=== PATIENT | female | born 1950 | race Caucasian/White ===

== ENCOUNTER 2016-10-23 15:20 | Emergency (ER) | payer BC ==
[~2016-10-23 15:20] MED LIST: Sodium Chloride 0.9% 100 ML BAG ONE
[2016-10-23 16:24] LABS: #Neutrophils 4.3 thou/uL (1.40-6.50); %Basophils 0.4 % (0.0-1.0); %Lymphocytes 27.2 % (21.0-51.0); %Neutrophils 58.4 % (42.0-75.0); Hemoglobin 15.6 g/dL (12.0-16.0); Mean Corpuscular HGB CONC 33.9 g/dL (32.0-36.0); Mean Corpuscular Volume 82.7 fl (81.0-99.0); Mean Platelet Volume 7.2 fL (7.4-10.4); Platelet Count 189 thou/uL (130-400); RBC Distribution Width 12.5 % (11.5-14.5); Red Blood Cell (RBC) Count 5.58 mill/uL (4.20-5.40); White Blood Cell (WBC) Count 7.4 thou/uL (4.8-10.8)
[2016-10-23] MEDS ORDERED: Ketorolac Tromethamine 30 MG/ML VIAL ONE (16:25)
[2016-10-23] MEDS ORDERED: Morphine Sulfate 2 MG/ML SYRINGE ONE ×2 (16:25→18:10)
[2016-10-23] MEDS ORDERED: Ondansetron HCl/PF 4 MG/2 ML Vial ONE (16:26)
[2016-10-23 16:42] LABS: ALT (SGPT) 64 U/L (0-55); Albumin 3.9 g/dL (3.4-4.8); Alkaline Phosphatase 100 U/L (40-150); Anion Gap 19 mmol/L (10-20); BUN (Urea Nitrogen) 10 mg/dL (9.8-20.1); Bilirubin, Total 0.8 mg/dL (0.2-1.2); Calc. Creatinine Clearance 0 mL/min (70-130); Calcium 9.2 mg/dL (7.8-10.44); Carbon Dioxide 23 mmol/L (23-31); Chloride 100 mmol/L (98-107); Estimated GFR-MDRD 83; Globulin 3.7 g/dL (2.4-3.5); Glucose 100 mg/dL (80-115); Potassium 3.4 mmol/L (3.5-5.1); Protein, Total 7.6 g/dL (5.8-8.1); Sodium 139 mmol/L (136-145)
[2016-10-23 16:48] LABS: AST (SGOT) 78 U/L (5-34)
[2016-10-23 17:00] LABS: Blood, Urine Small (Negative); Clarity Slightly Cloudy (Clear); Glucose, Urine (Dipstick) Negative (Negative); Leukocyte Trace (Negative); Nitrite Negative (Negative); Protein, Urine (Dipstick) > or equal to 300 mg/dL (Neg-Trace)
--- NOTE | 2016-10-23 17:15 | RAD ---
TWO VIEW CHEST: 10/23/16 INDICATION: Cough, dyspnea. No prior comparison. FINDINGS: Patchy and linear opacities at the lower lung zones are present bilaterally. There is no effusion or pneumothorax. Cardiac silhouette is mildly enlarged. Mild prominence of central pulmonary vasculatu re. Osseous degenerative change present. IMPRESSION: Patchy bibasilar opacities. This could be on the basis of perihilar edema or pneumonia. A superimpos ed rounded component at the right lower lung zone is nonspecific. An underlying nodule versus a supe rimposed structure are the primary considerations. Followup two view chest to confirm resolution is recommended. Code LN POS: SHEILA
[2016-10-23 17:16] LABS: Bilirubin Negative (Negative)
[2016-10-23 17:17] LABS: Icto Negative (Negative)
[2016-10-23 17:18] LABS: Bacteria/HPF 4+ HPF (None Seen); Squamous Epithelial 0-3 HPF (0-3)
[2016-10-23] MEDS ORDERED: cefTRIAXone\\ROCEPHIN 1 GM VIAL ONE (17:51)
[2016-10-23] MEDS ORDERED: Azithromycin 250 MG TAB ONE (18:10)
[2016-10-23] MEDS ORDERED: Benzonatate 100 MG CAP ONE (18:10)
== END 2016-10-23 18:40 | disposition home or self-care (01) ==
LOC: MADERS 15:20
DX: J18.9 Pneumonia, unspecified organism (principal); N39.0 Urinary tract infection, site not specified; I10 Essential (primary) hypertension; M19.90 Unspecified osteoarthritis, unspecified site; Z79.899 Other long term (current) drug therapy
CPT/HCPCS: 36415; 71020; 80053; 81003; 81015; 85025; 87040; 87077; 87086; 87186; 96374; 96375; 96376; J0696; J1885; J2270; J2405; J7050

== ENCOUNTER 2016-10-30 10:29 | Outpatient (CLI) | payer BC ==
--- NOTE | 2016-10-30 14:17 | RAD ---
PA AND LATERAL VIEWS OF CHEST: Date: 10/30/16 HISTORY: Community-acquired pneumonia. FINDINGS/IMPRESSION: Comparison made with exam of 10/23/16. The heart size is prominent but stable. Patchy density in the right lower lung is again seen. No pneumothorax or large effusions are identif ied. There are chronic changes in the left lower lung. A follow-up exam after treatment is recommend ed in 4 weeks. POS: OFF
== END 2016-10-30 10:30 | disposition home or self-care (01) ==
LOC: MADRAD 10:29
PROVIDERS: ATTEND Family Medicine
DX: J18.9 Pneumonia, unspecified organism (principal)
CPT/HCPCS: 71020

== ENCOUNTER 2016-12-07 11:02 | Outpatient (CLI) | payer BC ==
--- NOTE | 2016-12-07 14:21 | RAD ---
CHEST 2 VIEWS: HISTORY: Right lung nodule. Followup. COMPARISON: 10/30/16 and 10/23/16. FINDINGS: The cardiac silhouette and pulmonary vasculature remain upper limits of normal. Mediastinum is midl ine. The subtle oval nodular density projecting over the right infrahilar level on the frontal view is ag ain demonstrated. It is not significantly changed from the 10/23/09 exam. No new nodules are evident . IMPRESSION: Persistent right lower lobe nodule. Please consider CT chest for better characterization. CODE T POS: SHEILA
== END 2016-12-07 11:03 | disposition home or self-care (01) ==
LOC: MADRAD 11:02
PROVIDERS: ATTEND Family Medicine
DX: R93.8 Abnormal findings on diagnostic imaging of other specified body structures (principal)
CPT/HCPCS: 71020

== ENCOUNTER 2016-12-28 10:01 | Outpatient (CLI) | payer BC ==
--- NOTE | 2016-12-28 14:02 | CT ---
CT OF THE CHEST: Date: 12/28/16 COMPARISON: None. HISTORY: Pulmonary nodule noted on recent chest radiograph. TECHNIQUE: Serial axial CT imaging at 5 mm intervals from the thoracic inlet through the upper abdomen obtained without contrast. Coronal reformatted imaging is obtained. FINDINGS: The lack of contrast limits assessment of the imaged viscera, the vascular structures, and for lymph adenopathy. There is a low density lesion within the left lobe of the thyroid gland measuring 1.8 cm. A follow-u p thyroid ultrasound is advised. No axillary, hilar, or mediastinal lymphadenopathy is seen within the limitations of a noncontrast e nhanced scan. Limited assessment of the abdomen appears grossly unremarkable. Coronary arterial calcifications are seen. There is no pleural, pericardial, or mediastinal fluid noted. There is no pneumothorax seen on either side. There is minimal hazy density within the inferior and lateral aspect of the left lower lobe, as well as the inferior anterior aspect of the lingula, suggesting scar and/or volume loss. There is a focal area of minimal reticulonodular density within the anterolateral aspect of the righ t lower lobe, best seen on axial images 24 and 25, including an irregular nodule which measures up t o 7.0 mm. Medial to this, within the right lower lobe, best seen on image 26, is a 1.5 cm pulmonary nodule. There is no worrisome lytic or blastic bone lesion. IMPRESSION: 1. Dominant 1.5 cm nodule/mass noted in the right lower lobe. Just lateral to this, there is an are a of reticulonodular density with associated nodules measuring up to 7.0 mm. The dominant 1.5 cm nod ule is suspicious for possible malignancy. Its relationship to the adjacent reticulonodular densitie s is uncertain. This may represent infectious pneumonitis in the area of reticulonodular density and an adjacent 1.5 cm pulmonary neoplasm. Clinical correlation is essential. Evaluation for comparison imaging prior to 10/23/16 would be beneficial. Recommend further assessment via PET CT. If there is any concern for current pneumonia in the right lower lobe, the PET CT could be performed following a course of antibiotics. The dominant 1.5 cm nod ule does not have the appearance of an infectious process and has an appearance most concerning for malignancy. 2. There is a low density lesion within the left lobe of the thyroid gland measuring 1.8 cm. A foll ow-up thyroid ultrasound is advised. CODE T. POS: SHEILA
== END 2016-12-28 10:02 | disposition home or self-care (01) ==
LOC: MADCT 10:01
PROVIDERS: ATTEND Family Medicine
DX: R91.1 Solitary pulmonary nodule (principal)
CPT/HCPCS: 71250

== ENCOUNTER 2017-03-19 10:37 | Outpatient (CLI) | payer BC ==
[2017-03-19 10:56] LABS: #Basophils 0.1 thou/uL (0.0-0.2); #Eosinphils 0.2 thou/uL (0.0-0.7); #Lymphocytes 1.7 thou/uL (1.20-3.40); #Monocytes 0.6 thou/uL (0.11-0.59); #Neutrophils 2.5 thou/uL (1.40-6.50); %Basophils 1.4 % (0.0-1.0); %Eosinophils 3.1 % (0.0-10.0); %Lymphocytes 34.1 % (21.0-51.0); %Monocytes 11.3 % (0.0-10.0); %Neutrophils 50.1 % (42.0-75.0); Hemoglobin 13.7 g/dL (12.0-16.0); Mean Corpuscular HGB CONC 33.5 g/dL (32.0-36.0); Mean Corpuscular Hemoglobin 28.4 pg (27.0-31.0); Mean Corpuscular Volume 84.8 fl (81.0-99.0); Mean Platelet Volume 6.6 fL (7.4-10.4); Platelet Count 133 thou/uL (130-400); RBC Distribution Width 12.1 % (11.5-14.5); Red Blood Cell (RBC) Count 4.84 mill/uL (4.20-5.40)
[2017-03-19 13:56] LABS: ALT (SGPT) 40 U/L (8-55); AST (SGOT) 41 U/L (5-34); Albumin 3.8 g/dL (3.4-4.8); Alkaline Phosphatase 75 U/L (40-150); Anion Gap 12 mmol/L (10-20); BUN (Urea Nitrogen) 19 mg/dL (9.8-20.1); Bilirubin, Total 0.5 mg/dL (0.2-1.2); Calc. Creatinine Clearance 0 mL/min (70-130); Calcium 9.4 mg/dL (7.8-10.44); Carbon Dioxide 27 mmol/L (23-31); Chloride 104 mmol/L (98-107); Cholesterol 185 mg/dl (< 200 Desired); Estimated GFR-MDRD 76; Globulin 3.2 g/dL (2.4-3.5); Glucose 73 mg/dL (80-115); HDL Cholesterol 46 mg/dL (>60 Neg Risk); LDL Cholesterol, Calculated 105 mg/dL; Potassium 3.9 mmol/L (3.5-5.1); Sodium 139 mmol/L (136-145); Triglycerides 172 mg/dL (Less than 150)
[2017-03-19 15:04] LABS: Free T4 (Free Thyroxine) 0.79 ng/dL (0.70-1.48)
[2017-03-19 15:37] LABS: Thyroid Stimulating Hormone 4.5841 uIU/mL (0.35-4.94)
== END 2017-03-19 10:38 | disposition home or self-care (01) ==
LOC: MADLABBHPM 10:37
PROVIDERS: ATTEND Family Medicine
DX: E04.1 Nontoxic single thyroid nodule (principal); I10 Essential (primary) hypertension
CPT/HCPCS: 36415; 80053; 80061; 84439; 84443; 85025

== ENCOUNTER 2017-12-09 15:40 | Outpatient (CLI) | payer MEDICARE, OTHER ==
--- NOTE | 2017-12-09 16:52 | CT ---
CHEST CT WITHOUT CONTRAST: 12/09/17 COMPARISON: 12/28/16 HISTORY: Abnormal chest radiograph. Right lower lobe mass noted on previous exam. TECHNIQUE: Noncontrast chest CT is performed in the axial plane. Coronal reformatted images are submitted for in terpretation. FINDINGS: No mediastinal mass, lymphadenopathy or hematoma. Heart size is within normal limits. There are coron markie artery calcifications. No significant pericardial fluid. The visualized upper solid organs are unremarkable. Trachea and central bronchi are patent. Linear op acities in the lingula and left lower lobe are similar to the previous examination and represents sca r and atelectasis. Redemonstration of a dominant nodular opacity in the right lower lobe. Currently, this nodular opacity measures 1.7 cm anterior posterior x 1.3 cm mediolateral x 1.5 cm craniocaudal. Previously, this lesion measures 1.5 x 1.1 x 1.0 cm. The previous 7 mm peripheral nodular density is less evident. There are some linear opacification and subtle ground glass opacification in the left l ower lobe. Two small subcentimeter nodules in the left lower lobe measuring approximately 5 mm are un changed. No new masses are appreciated in the right lower lobe. No pleural effusion or pneumothorax. There are no lytic or blastic lesions within the osseous structures. IMPRESSION: Interval increase in size of a dominant nodule in the right lower lobe. Adjacent 7 mm nodule is no lo nger appreciated. There are two stable 5 mm nodules. Given interval increase in size, PET imaging is recommended. POS: [facility]
== END 2017-12-09 15:41 | disposition home or self-care (01) ==
LOC: MADCT 15:40
PROVIDERS: ATTEND Internal Medicine Sleep Medicine
DX: R91.8 Other nonspecific abnormal finding of lung field (principal)
CPT/HCPCS: 71250